=== PATIENT | female | born 1950 | race Caucasian/White ===

== ENCOUNTER 2016-11-11 14:00 | Emergency (ER) | payer OTHER ==
[~2016-11-11] VITALS: Ht 167.6 cm; Wt 93.0 kg
[2016-11-11 14:06] VITALS: Ht 167.6 cm; Wt 93.0 kg
[2016-11-11] MEDS ORDERED: LISI40TA9 PO (14:25)
--- NOTE | 2016-11-11 14:57 | RADRPT ---
PROCEDURE: XR Right Forearm. CLINICAL INDICATION: Right forearm pain. TECHNIQUE: AP and lateral views of the right forearm were obtained. COMPARISON: No prior studies are available for comparison. FINDINGS: There is no fracture or dislocation. The soft tissues are normal. Articular surfaces are intact. There is no lytic or blastic lesion. There is no radiopaque foreign body. IMPRESSION: 1. Unremarkable images of the right forearm. RPTAT: QQ .Duane Gannon MD, MD Date Time Electronically viewed and signed by .Duane Gannon MD, on 11/11/2016 14:57 .R/
[2016-11-11] MEDS ORDERED: IBUP-1542 PO (15:15)
--- NOTE | 2016-11-11 16:01 | RADRPT ---
PROCEDURE: XR Hand 3 Views. CLINICAL INDICATION: Right hand pain and trauma. TECHNIQUE: AP, oblique and lateral views of the right hand were obtained. COMPARISON: No prior studies are available for comparison. FINDINGS: Osseous structures appear intact. Corticated defect along the undersurface of the scaphoid is ident ified. No destructive bony lesions are observed. The interosseous spaces are unremarkable. Soft t issues surrounding the hand appear normal. IMPRESSION: Corticated contour defect along the undersurface of the scaphoid that could be the sequelae of radia l styloid impaction. Otherwise, unremarkable exam. If further characterization is needed CT or MRI could be helpful. If there is high clinical suspicion for traumatic injury, further evaluation with CT should be consi dered. RPTAT: AA .Tye Bermudez MD, Date Time Electronically viewed and signed by .Tye Bermudez MD, MD on 11/11/2016 16:01 .P/
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
== END 2016-11-11 15:28 | disposition home or self-care (01) ==
LOC: E/R 14:00
DX: S63.91XA Sprain of unspecified part of right wrist and hand, initial encounter (principal); I10 Essential (primary) hypertension; W22.8XXA Striking against or struck by other objects, initial encounter; Y92.89 Other specified places as the place of occurrence of the external cause
CPT/HCPCS: 73090; 73130; Z7502